=== PATIENT | male | born 1980 | race Caucasian/White ===

== ENCOUNTER → 2019-04-21 | Outpatient (CLI) | payer OTHER ==
--- NOTE | 2019-04-21 22:41 | CT ---
EXAMINATION TYPE: CT abdomen pelvis w con DATE OF EXAM: 04/21/2019 COMPARISON: None. HISTORY: Pt c/o Rt abdominal pain x9 months. Ventral hernia w/out obstruction CT DLP: 1523 mGycm, Automated Exposure Control for Dose Reduction was Utilized. CONTRAST: CT scan of the abdomen and pelvis is performed with oral and with IV Contrast, patient injected with 100 mL of Isovue 300. FINDINGS: LUNG BASES: No significant abnormality is appreciated. LIVER/GB: No significant abnormality is appreciated. PANCREAS: No significant abnormality is seen. SPLEEN: No significant abnormality is seen. ADRENALS: No significant abnormality is seen. KIDNEYS: No significant abnormality is seen. BOWEL: Appendix is within normal limits from the cecum. Oral contrast reaches level of the rectum. No suspicious small or large bowel dilatation. PROSTATE/SEMINAL VESICLES: Central calcifications are seen in normal-sized prostate gland. Scattered left-sided pelvic phleboliths are present. LYMPH NODES: No greater than 1cm abdominal or pelvic lymph nodes are appreciated. OSSEOUS STRUCTURES: No significant abnormality is seen. OTHER: Tiny fat-containing umbilical hernia. No suspicious ventral wall hernia. IMPRESSION: No suspicious fat or bowel-containing ventral wall hernia. No significant acute finding i s seen to account for patient's clinical symptoms of right-sided abdominal pain.
== END | disposition home or self-care (01) ==
LOC: RADCTMAIN 14:48
PROVIDERS: ATTEND Family Medicine
DX: K43.9 Ventral hernia without obstruction or gangrene (principal)
CPT/HCPCS: 74177; Q9967